=== PATIENT | male | born 1980 | race Caucasian/White ===

== ENCOUNTER 2017-04-25 08:15 | Emergency (ER) | payer MEDICAID, SELFPAY, OTHER ==
[2017-04-25] MEDS: KETOROLAC 30 MG/ML VIAL (J1885) IV ×2 (09:37)
[2017-04-25] MEDS: diphenhydrAMINE INJ 50MG/ML VIAL (J1200) IV ×2 (09:37)
[2017-04-25] MEDS: NS 1,000 ML IV ×2 (09:37)
[2017-04-25 09:42] LABS: BASO # 0.1 10^3/uL (0.0-0.2); BASO % 0.3 % (0.0-1.0); EOS # 0.1 10^3/uL (0.0-0.50); EOS % 0.5 % (0.0-3.0); HEMATOCRIT 43.4 % (42.0-52.0); HEMOGLOBIN 14.6 g/dl (14.0-18.0); IMMATURE GRANULOCYTE % 0.6 % (0-3.0); LYMPH # 1.3 10^3/uL (1.5-4.5); LYMPH % 5.3 % (24.0-44.0); MEAN CORPUSCULAR HEMOGLOBIN 29.9 pg (27.0-33.0); MEAN CORPUSCULAR HGB CONC 33.6 g/dl (32.0-36.5); MEAN CORPUSCULAR VOLUME 88.9 fl (80.0-96.0); MONO # 1.7 10^3/uL (0.0-0.8); MONO % 7.1 % (0.0-5.0); NEUTROPHILS # 20.7 10^3/uL (1.8-7.7); NEUTROPHILS % 86.2 % (36.0-66.0); PLATELET COUNT, AUTOMATED 309 10^3/uL (150-450); RED BLOOD COUNT 4.88 10^6/uL (4.30-6.10)
[2017-04-25] MEDS: CEFTRIAXONE SOD 1 GM in APPROPRIATE DILUENT 1 EA IV (09:42)
[2017-04-25 10:49] LABS: ANION GAP 7 MEQ/L (8-16); BLOOD UREA NITROGEN 7 MG/DL (7-18); CALCIUM LEVEL 9.4 MG/DL (8.5-10.1); CARBON DIOXIDE LEVEL 31 MEQ/L (21-32); CHLORIDE LEVEL 99 MEQ/L (98-107); CREATININE FOR GFR 0.73 MG/DL (0.70-1.30); GLOMERULAR FILTRATION RATE > 60.0 (>60); GLUCOSE, FASTING 100 MG/DL (70-100); POTASSIUM SERUM 3.9 MEQ/L (3.5-5.1); SODIUM LEVEL 137 MEQ/L (136-145)
== END 2017-04-25 11:19 | disposition home or self-care (01) ==
LOC: M ED 08:15
DX: L03.211 Cellulitis of face (principal); L02.414 Cutaneous abscess of left upper limb; R21 Rash and other nonspecific skin eruption; M54.9 Dorsalgia, unspecified; Z79.899 Other long term (current) drug therapy
CPT/HCPCS: J1200

== ENCOUNTER 2017-04-27 17:57 | Inpatient (IN) | payer MEDICAID, SELFPAY ==
[2017-04-27] MEDS: NS 1,000 ML IV (20:20)
[2017-04-27 20:31] LABS: BASO # 0.1 10^3/uL (0.0-0.2); BASO % 0.4 % (0.0-1.0); EOS # 0.3 10^3/uL (0.0-0.50); EOS % 1.5 % (0.0-3.0); HEMATOCRIT 42.1 % (42.0-52.0); HEMOGLOBIN 14.2 g/dl (14.0-18.0); IMMATURE GRANULOCYTE % 0.6 % (0-3.0); LYMPH # 1.8 10^3/uL (1.5-4.5); LYMPH % 10.9 % (24.0-44.0); MEAN CORPUSCULAR HEMOGLOBIN 29.8 pg (27.0-33.0); MEAN CORPUSCULAR HGB CONC 33.7 g/dl (32.0-36.5); MEAN CORPUSCULAR VOLUME 88.4 fl (80.0-96.0); MONO # 1.3 10^3/uL (0.0-0.8); MONO % 8.2 % (0.0-5.0); NEUTROPHILS # 12.8 10^3/uL (1.8-7.7); NEUTROPHILS % 78.4 % (36.0-66.0); PLATELET COUNT, AUTOMATED 374 10^3/uL (150-450); RED BLOOD COUNT 4.76 10^6/uL (4.30-6.10); RED CELL DISTRIBUTION WIDTH 12.8 % (11.5-14.5); WHITE BLOOD COUNT 16.3 10^3/uL (4.0-10.0)
[2017-04-27 20:49] LABS: ALBUMIN 3.4 GM/DL (3.2-5.2); ALBUMIN/GLOBULIN RATIO 0.76 (1.00-1.93); ALKALINE PHOSPHATASE 121 U/L (45-117); ALT/SGPT 46 U/L (12-78); ANION GAP 5 MEQ/L (8-16); AST/SGOT 34 U/L (7-37); BILIRUBIN,DIRECT 0.1 MG/DL (0.0-0.2); BILIRUBIN,TOTAL 0.3 MG/DL (0.2-1.0); BLOOD UREA NITROGEN 8 MG/DL (7-18); CALCIUM LEVEL 9.3 MG/DL (8.5-10.1); CARBON DIOXIDE LEVEL 30 MEQ/L (21-32); CHLORIDE LEVEL 104 MEQ/L (98-107); GLOMERULAR FILTRATION RATE > 60.0 (>60); GLUCOSE, FASTING 79 MG/DL (70-100); POTASSIUM SERUM 4.1 MEQ/L (3.5-5.1); SODIUM LEVEL 139 MEQ/L (136-145); TOTAL PROTEIN 7.9 GM/DL (6.4-8.2)
[2017-04-27 20:49] LABS: LACTIC ACID SEPSIS PROTOCOL 0.9 MMOL/L (0.4-2.0)
[2017-04-27] MEDS ORDERED: ISOVUE-370 76% 100ML VIAL (Q9967) As Ordered (20:50)
[2017-04-27 20:55] LABS: ERYTHROCYTE SEDIMENTATION RATE 69 mm/hr (0-15)
[2017-04-27] MEDS ORDERED: ONDANSETRON 4MG/2ML VIAL (J2405) IV (22:15)
[2017-04-27] MEDS: VANCOMYCIN HCL 1,000 MG, VIAL MATE ADAPTER 1 EACH in D5W 250 ML IV (22:30)
[2017-04-27] MEDS ORDERED: VANCOMYCIN HCL 1,000 MG in IV FLUID PLACE HOLDER 1 EA IV (22:30)
[2017-04-27] MEDS ORDERED: PERCOCET 5MG/325MG TAB PO (22:30)
[2017-04-27] MEDS: MORPHINE 4 MG/ML 1ML VIAL (J2270) IV (22:38)
[2017-04-27 22:53] LABS: IMMUNOGLOBULIN G 948 MG/DL (681-1648); IMMUNOGLOBULIN M 111 MG/DL (40-230)
[2017-04-28] MEDS: NS 1,000 ML IV ×2 (00:38→15:13)
[2017-04-28] MEDS: VANCOMYCIN HCL 1,000 MG, VIAL MATE ADAPTER 1 EACH in D5W 250 ML IV ×4 (00:38→18:13)
[2017-04-28] MEDS: DOCUSATE SODIUM 100 MG CAP PO ×3 (00:39→21:11)
[2017-04-28] MEDS: PERCOCET 5MG/325MG TAB PO ×5 (01:07→21:11)
[2017-04-28] MEDS: PIPERACILLIN/TAZOBACTAM SOD 3.375 GM in APPROPRIATE DILUENT 1 EA IV ×3 (03:42→17:12)
[2017-04-28] MEDS ORDERED: HEPARIN SOD (PORCINE) 5000 UNITS/ML VIAL SC (06:00)
[2017-04-28 06:12] LABS: HEMATOCRIT 38.4 % (42.0-52.0); HEMOGLOBIN 12.7 g/dl (14.0-18.0); MEAN CORPUSCULAR HEMOGLOBIN 29.7 pg (27.0-33.0); MEAN CORPUSCULAR HGB CONC 33.1 g/dl (32.0-36.5); MEAN CORPUSCULAR VOLUME 89.7 fl (80.0-96.0); PLATELET COUNT, AUTOMATED 317 10^3/uL (150-450); RED BLOOD COUNT 4.28 10^6/uL (4.30-6.10); RED CELL DISTRIBUTION WIDTH 12.9 % (11.5-14.5); WHITE BLOOD COUNT 9.9 10^3/uL (4.0-10.0)
[2017-04-28 06:49] LABS: ANION GAP 7 MEQ/L (8-16); BLOOD UREA NITROGEN 6 MG/DL (7-18); C REACTIVE PROTEIN QUANTITATIV 9.94 MG/DL (0.00-0.30); CALCIUM LEVEL 9.2 MG/DL (8.5-10.1); CARBON DIOXIDE LEVEL 30 MEQ/L (21-32); CHLORIDE LEVEL 102 MEQ/L (98-107); CREATININE FOR GFR 0.68 MG/DL (0.70-1.30); GLOMERULAR FILTRATION RATE > 60.0 (>60); GLUCOSE, FASTING 91 MG/DL (70-100); POTASSIUM SERUM 3.6 MEQ/L (3.5-5.1); SODIUM LEVEL 139 MEQ/L (136-145)
[2017-04-28] MEDS: ENOXAPARIN 40 MG/0.4 ML SYRINGE (J1650) SC (09:27)
[2017-04-28] MEDS: MORPHINE 4 MG/ML 1ML VIAL (J2270) IV ×3 (09:28→17:12)
[2017-04-28] MEDS: diphenhydrAMINE 25 MG CAP PO (15:11)
[2017-04-28] MEDS ORDERED: PERCOCET 5MG/325MG TAB PO (15:15)
[2017-04-29] MEDS: MORPHINE 4 MG/ML 1ML VIAL (J2270) IV ×5 (00:06→22:11)
[2017-04-29] MEDS: PIPERACILLIN/TAZOBACTAM SOD 3.375 GM in APPROPRIATE DILUENT 1 EA IV ×3 (01:23→16:08)
[2017-04-29] MEDS: PERCOCET 5MG/325MG TAB PO ×6 (01:24→23:47)
[2017-04-29 03:00] LABS: VANCOMYCIN LEVEL TROUGH 12.6 UG/ML (10.0-20.0)
[2017-04-29] MEDS: diphenhydrAMINE 25 MG CAP PO ×2 (03:42→21:34)
[2017-04-29] MEDS: VANCOMYCIN HCL 1,000 MG, VIAL MATE ADAPTER 1 EACH in D5W 250 ML IV ×3 (03:43→17:31)
[2017-04-29 06:30] LABS: HEMATOCRIT 42.3 % (42.0-52.0); HEMOGLOBIN 14.1 g/dl (14.0-18.0); MEAN CORPUSCULAR HEMOGLOBIN 29.3 pg (27.0-33.0); MEAN CORPUSCULAR HGB CONC 33.3 g/dl (32.0-36.5); MEAN CORPUSCULAR VOLUME 87.9 fl (80.0-96.0); PLATELET COUNT, AUTOMATED 389 10^3/uL (150-450); RED BLOOD COUNT 4.81 10^6/uL (4.30-6.10); RED CELL DISTRIBUTION WIDTH 12.7 % (11.5-14.5); WHITE BLOOD COUNT 7.5 10^3/uL (4.0-10.0)
[2017-04-29 06:47] LABS: ANION GAP 4 MEQ/L (8-16); BLOOD UREA NITROGEN 4 MG/DL (7-18); C REACTIVE PROTEIN QUANTITATIV 4.33 MG/DL (0.00-0.30); CALCIUM LEVEL 9.4 MG/DL (8.5-10.1); CARBON DIOXIDE LEVEL 31 MEQ/L (21-32); CHLORIDE LEVEL 102 MEQ/L (98-107); CREATININE FOR GFR 0.75 MG/DL (0.70-1.30); GLOMERULAR FILTRATION RATE > 60.0 (>60); GLUCOSE, FASTING 83 MG/DL (70-100); POTASSIUM SERUM 3.7 MEQ/L (3.5-5.1); SODIUM LEVEL 137 MEQ/L (136-145)
[2017-04-29] MEDS: NS 1,000 ML IV ×3 (07:35→23:47)
[2017-04-29] MEDS: DOCUSATE SODIUM 100 MG CAP PO ×2 (09:33→21:35)
[2017-04-29] MEDS: ENOXAPARIN 40 MG/0.4 ML SYRINGE (J1650) SC (09:34)
[2017-04-29] MEDS: GABAPENTIN 100 MG CAP PO ×2 (14:57→21:34)
[2017-04-29] MEDS: **hydrALAZINE HCL** 25 MG TAB PO (17:00)
[2017-04-30] MEDS: MORPHINE 4 MG/ML 1ML VIAL (J2270) IV ×4 (00:38→13:17)
[2017-04-30] MEDS: PIPERACILLIN/TAZOBACTAM SOD 3.375 GM in APPROPRIATE DILUENT 1 EA IV ×3 (00:38→16:43)
[2017-04-30] MEDS: VANCOMYCIN HCL 1,000 MG, VIAL MATE ADAPTER 1 EACH in D5W 250 ML IV ×3 (02:06→17:34)
[2017-04-30] MEDS: PERCOCET 5MG/325MG TAB PO ×4 (03:55→21:00)
[2017-04-30 07:06] LABS: HEMATOCRIT 46.1 % (42.0-52.0); HEMOGLOBIN 15.5 g/dl (14.0-18.0); MEAN CORPUSCULAR HEMOGLOBIN 29.5 pg (27.0-33.0); MEAN CORPUSCULAR HGB CONC 33.6 g/dl (32.0-36.5); MEAN CORPUSCULAR VOLUME 87.6 fl (80.0-96.0); PLATELET COUNT, AUTOMATED 379 10^3/uL (150-450); RED BLOOD COUNT 5.26 10^6/uL (4.30-6.10); RED CELL DISTRIBUTION WIDTH 12.4 % (11.5-14.5); WHITE BLOOD COUNT 7.9 10^3/uL (4.0-10.0)
[2017-04-30 07:25] LABS: ANION GAP 5 MEQ/L (8-16); BLOOD UREA NITROGEN 7 MG/DL (7-18); C REACTIVE PROTEIN QUANTITATIV 1.74 MG/DL (0.00-0.30); CALCIUM LEVEL 9.3 MG/DL (8.5-10.1); CARBON DIOXIDE LEVEL 31 MEQ/L (21-32); CHLORIDE LEVEL 103 MEQ/L (98-107); CREATININE FOR GFR 0.72 MG/DL (0.70-1.30); GLOMERULAR FILTRATION RATE > 60.0 (>60); GLUCOSE, FASTING 87 MG/DL (70-100); POTASSIUM SERUM 4.4 MEQ/L (3.5-5.1); SODIUM LEVEL 139 MEQ/L (136-145)
[2017-04-30] MEDS: GABAPENTIN 100 MG CAP PO (08:54)
[2017-04-30] MEDS: DOCUSATE SODIUM 100 MG CAP PO ×2 (08:54→20:59)
[2017-04-30] MEDS: ENOXAPARIN 40 MG/0.4 ML SYRINGE (J1650) SC (08:55)
[2017-04-30 12:09] LABS: HEPATITIS B SURFACE ANTIGEN NEGATIVE (NEGATIVE)
[2017-04-30 12:31] LABS: HEPATITIS B CORE ANTIBODY IGM NEGATIVE (NEGATIVE)
[2017-04-30 12:31] LABS: HEPATITIS C VIRUS ABY INDEX 0.1 INDEX (<0.8)
[2017-04-30 12:34] LABS: HEPATITIS A ANTIBODY IGM NEGATIVE (NEGATIVE)
[2017-04-30 12:35] LABS: HIV 1&2 SCREEN CENTAUR NEGATIVE (NEGATIVE)
[2017-04-30] MEDS: traMADol 50 MG TAB PO ×2 (14:37→22:07)
[2017-04-30] MEDS: NS 1,000 ML IV ×2 (16:26→20:58)
[2017-04-30] MEDS: KETOROLAC TROMETHAMINE 10 MG TAB PO (20:59)
[2017-04-30] MEDS: GABAPENTIN 300 MG CAP PO (20:59)
[2017-04-30] MEDS: diphenhydrAMINE 25 MG CAP PO (22:06)
[2017-04-30] MEDS: ACETAMINOPHEN TAB 650MG DOSE (2X325MG) PO (22:06)
[2017-05-01] MEDS: PIPERACILLIN/TAZOBACTAM SOD 3.375 GM in APPROPRIATE DILUENT 1 EA IV ×2 (00:41→08:45)
[2017-05-01] MEDS: MORPHINE 4 MG/ML 1ML VIAL (J2270) IV ×6 (00:42→22:26)
[2017-05-01] MEDS: VANCOMYCIN HCL 1,000 MG, VIAL MATE ADAPTER 1 EACH in D5W 250 ML IV ×2 (01:48→10:15)
[2017-05-01] MEDS: KETOROLAC TROMETHAMINE 10 MG TAB PO ×2 (03:01→19:39)
[2017-05-01] MEDS: GABAPENTIN 300 MG CAP PO ×3 (03:01→22:26)
[2017-05-01] MEDS: ACETAMINOPHEN TAB 650MG DOSE (2X325MG) PO ×2 (03:01→19:39)
[2017-05-01] MEDS: SENNA 8.6 MG TAB (SENOKOT) PO ×2 (08:46→19:40)
[2017-05-01] MEDS: PERCOCET 5MG/325MG TAB PO ×3 (08:46→18:22)
[2017-05-01] MEDS: ENOXAPARIN 40 MG/0.4 ML SYRINGE (J1650) SC (08:47)
[2017-05-01 09:26] LABS: HEMATOCRIT 46.3 % (42.0-52.0); HEMOGLOBIN 15.5 g/dl (14.0-18.0); MEAN CORPUSCULAR HEMOGLOBIN 28.7 pg (27.0-33.0); MEAN CORPUSCULAR HGB CONC 33.5 g/dl (32.0-36.5); MEAN CORPUSCULAR VOLUME 85.6 fl (80.0-96.0); PLATELET COUNT, AUTOMATED 392 10^3/uL (150-450); RED BLOOD COUNT 5.41 10^6/uL (4.30-6.10); RED CELL DISTRIBUTION WIDTH 12.4 % (11.5-14.5); WHITE BLOOD COUNT 8.8 10^3/uL (4.0-10.0)
[2017-05-01 09:52] LABS: ANION GAP 7 MEQ/L (8-16); BLOOD UREA NITROGEN 8 MG/DL (7-18); C REACTIVE PROTEIN QUANTITATIV 0.83 MG/DL (0.00-0.30); CALCIUM LEVEL 9.4 MG/DL (8.5-10.1); CARBON DIOXIDE LEVEL 27 MEQ/L (21-32); CHLORIDE LEVEL 105 MEQ/L (98-107); CREATININE FOR GFR 0.85 MG/DL (0.70-1.30); GLOMERULAR FILTRATION RATE > 60.0 (>60); GLUCOSE, FASTING 130 MG/DL (70-100); SODIUM LEVEL 139 MEQ/L (136-145)
[2017-05-01] MEDS: CEFDINIR 300 MG CAP (OMNICEF) PO (13:07)
[2017-05-01] MEDS: NS 1,000 ML IV (19:42)
[2017-05-02 00:11] LABS: COMPLEMENT TOTAL (CH50) > 63 U/mL (42-60)
[2017-05-02] MEDS: PERCOCET 5MG/325MG TAB PO ×2 (01:43→06:56)
[2017-05-02] MEDS: CEFDINIR 300 MG CAP (OMNICEF) PO ×2 (01:43→13:10)
[2017-05-02] MEDS: KETOROLAC TROMETHAMINE 10 MG TAB PO ×2 (03:00→09:22)
[2017-05-02] MEDS: ACETAMINOPHEN TAB 650MG DOSE (2X325MG) PO (03:00)
[2017-05-02] MEDS: traMADol 50 MG TAB PO ×2 (03:01→09:22)
[2017-05-02] MEDS: GABAPENTIN 300 MG CAP PO ×2 (06:55→21:48)
[2017-05-02 08:10] LABS: ANION GAP 9 MEQ/L (8-16); BLOOD UREA NITROGEN 6 MG/DL (7-18); CALCIUM LEVEL 9.5 MG/DL (8.5-10.1); CARBON DIOXIDE LEVEL 27 MEQ/L (21-32); CHLORIDE LEVEL 103 MEQ/L (98-107); CREATININE FOR GFR 0.77 MG/DL (0.70-1.30); GLOMERULAR FILTRATION RATE > 60.0 (>60); GLUCOSE, FASTING 83 MG/DL (70-100); POTASSIUM SERUM 4.5 MEQ/L (3.5-5.1); SODIUM LEVEL 139 MEQ/L (136-145)
[2017-05-02 08:31] LABS: HEMATOCRIT 47.2 % (42.0-52.0); HEMOGLOBIN 15.9 g/dl (14.0-18.0); MEAN CORPUSCULAR HEMOGLOBIN 29.7 pg (27.0-33.0); MEAN CORPUSCULAR HGB CONC 33.7 g/dl (32.0-36.5); MEAN CORPUSCULAR VOLUME 88.2 fl (80.0-96.0); PLATELET COUNT, AUTOMATED 340 10^3/uL (150-450); RED BLOOD COUNT 5.35 10^6/uL (4.30-6.10); RED CELL DISTRIBUTION WIDTH 12.5 % (11.5-14.5); WHITE BLOOD COUNT 10.5 10^3/uL (4.0-10.0)
[2017-05-02] MEDS: SENNA 8.6 MG TAB (SENOKOT) PO ×2 (09:17→21:36)
[2017-05-02] MEDS: ENOXAPARIN 40 MG/0.4 ML SYRINGE (J1650) SC (09:18)
[2017-05-02] MEDS: MORPHINE 4 MG/ML 1ML VIAL (J2270) IV ×3 (10:25→19:03)
[2017-05-02] MEDS ORDERED: PILL CUTTER/CRUSHER XX (10:30)
[2017-05-02] MEDS: BACLOFEN 10 MG TAB PO ×3 (10:35→21:36)
[2017-05-02] MEDS: MORPHINE 30 MG TAB **MSIR PO ×3 (12:02→21:36)
[2017-05-02] MEDS ORDERED: [UNRECOGNIZED DRUG - REMARK] XX (16:45)
[2017-05-02] MEDS: DOCUSATE SODIUM 100 MG CAP PO (21:36)
[2017-05-03] MEDS: CEFDINIR 300 MG CAP (OMNICEF) PO ×2 (02:56→13:18)
[2017-05-03] MEDS: traMADol 50 MG TAB PO ×2 (03:09→22:50)
[2017-05-03] MEDS: GABAPENTIN 300 MG CAP PO ×3 (03:36→20:13)
[2017-05-03] MEDS: MORPHINE 30 MG TAB **MSIR PO ×3 (03:37→13:18)
[2017-05-03] MEDS: SENNA 8.6 MG TAB (SENOKOT) PO ×2 (08:51→20:13)
[2017-05-03] MEDS: ENOXAPARIN 40 MG/0.4 ML SYRINGE (J1650) SC (08:52)
[2017-05-03] MEDS: DOCUSATE SODIUM 100 MG CAP PO ×2 (08:52→20:13)
[2017-05-03] MEDS: BACLOFEN 10 MG TAB PO ×3 (08:52→20:13)
[2017-05-03 10:20] LABS: HEMATOCRIT 46.6 % (42.0-52.0); HEMOGLOBIN 15.9 g/dl (14.0-18.0); MEAN CORPUSCULAR HEMOGLOBIN 29.6 pg (27.0-33.0); MEAN CORPUSCULAR HGB CONC 34.1 g/dl (32.0-36.5); MEAN CORPUSCULAR VOLUME 86.6 fl (80.0-96.0); PLATELET COUNT, AUTOMATED 372 10^3/uL (150-450); RED BLOOD COUNT 5.38 10^6/uL (4.30-6.10); RED CELL DISTRIBUTION WIDTH 12.7 % (11.5-14.5); WHITE BLOOD COUNT 10.4 10^3/uL (4.0-10.0)
[2017-05-03 10:43] LABS: ANION GAP 8 MEQ/L (8-16); BLOOD UREA NITROGEN 9 MG/DL (7-18); C REACTIVE PROTEIN QUANTITATIV 0.37 MG/DL (0.00-0.30); CALCIUM LEVEL 9.3 MG/DL (8.5-10.1); CARBON DIOXIDE LEVEL 28 MEQ/L (21-32); CHLORIDE LEVEL 104 MEQ/L (98-107); CREATININE FOR GFR 0.77 MG/DL (0.70-1.30); GLOMERULAR FILTRATION RATE > 60.0 (>60); GLUCOSE, FASTING 119 MG/DL (70-100); POTASSIUM SERUM 3.8 MEQ/L (3.5-5.1); SODIUM LEVEL 140 MEQ/L (136-145)
[2017-05-03] MEDS: KETOROLAC TROMETHAMINE 10 MG TAB PO (13:18)
[2017-05-03] MEDS: PERCOCET 5MG/325MG TAB PO (20:14)
[2017-05-04] MEDS: KETOROLAC TROMETHAMINE 10 MG TAB PO (02:15)
[2017-05-04] MEDS: PERCOCET 5MG/325MG TAB PO ×4 (02:16→22:13)
[2017-05-04] MEDS: CEFDINIR 300 MG CAP (OMNICEF) PO ×2 (02:16→14:45)
[2017-05-04] MEDS: MORPHINE 30 MG TAB **MSIR PO ×2 (03:32→10:21)
[2017-05-04] MEDS: GABAPENTIN 300 MG CAP PO ×3 (03:34→21:04)
[2017-05-04] MEDS: traMADol 50 MG TAB PO ×2 (07:04→18:27)
[2017-05-04 07:23] LABS: HEMATOCRIT 46.2 % (42.0-52.0); MEAN CORPUSCULAR HEMOGLOBIN 28.8 pg (27.0-33.0); MEAN CORPUSCULAR HGB CONC 32.5 g/dl (32.0-36.5); MEAN CORPUSCULAR VOLUME 88.7 fl (80.0-96.0); PLATELET COUNT, AUTOMATED 350 10^3/uL (150-450); RED BLOOD COUNT 5.21 10^6/uL (4.30-6.10); RED CELL DISTRIBUTION WIDTH 12.8 % (11.5-14.5); WHITE BLOOD COUNT 10.4 10^3/uL (4.0-10.0)
[2017-05-04 07:46] LABS: ANION GAP 5 MEQ/L (8-16); BLOOD UREA NITROGEN 19 MG/DL (7-18); C REACTIVE PROTEIN QUANTITATIV < 0.30 MG/DL (0.00-0.30); CARBON DIOXIDE LEVEL 27 MEQ/L (21-32); CHLORIDE LEVEL 108 MEQ/L (98-107); GLOMERULAR FILTRATION RATE > 60.0 (>60); GLUCOSE, FASTING 84 MG/DL (70-100); POTASSIUM SERUM 4.6 MEQ/L (3.5-5.1); SODIUM LEVEL 140 MEQ/L (136-145)
[2017-05-04] MEDS: ENOXAPARIN 40 MG/0.4 ML SYRINGE (J1650) SC (09:00)
[2017-05-04] MEDS: SENNA 8.6 MG TAB (SENOKOT) PO ×2 (09:02→21:04)
[2017-05-04] MEDS: DOCUSATE SODIUM 100 MG CAP PO ×2 (09:02→21:04)
[2017-05-04] MEDS: BACLOFEN 10 MG TAB PO ×3 (09:02→21:04)
[2017-05-04] MEDS: NS 1,000 ML IV (17:35)
[2017-05-04] MEDS: ACETAMINOPHEN TAB 650MG DOSE (2X325MG) PO (21:04)
[2017-05-04] MEDS: INDOMETHACIN 25 MG CAP PO (21:05)
[2017-05-05] MEDS: traMADol 50 MG TAB PO ×3 (03:10→21:02)
[2017-05-05] MEDS: CEFDINIR 300 MG CAP (OMNICEF) PO ×2 (03:10→15:21)
[2017-05-05] MEDS: PERCOCET 5MG/325MG TAB PO ×4 (04:15→23:21)
[2017-05-05] MEDS: ENOXAPARIN 40 MG/0.4 ML SYRINGE (J1650) SC (08:58)
[2017-05-05] MEDS: INDOMETHACIN 25 MG CAP PO ×2 (08:58→21:01)
[2017-05-05] MEDS: BACLOFEN 10 MG TAB PO ×3 (08:58→21:01)
[2017-05-05] MEDS: SENNA 8.6 MG TAB (SENOKOT) PO ×2 (08:58→21:01)
[2017-05-05] MEDS: GABAPENTIN 300 MG CAP PO ×2 (08:58→15:21)
[2017-05-05] MEDS: DOCUSATE SODIUM 100 MG CAP PO ×2 (08:58→21:01)
[2017-05-05] MEDS: ACETAMINOPHEN TAB 650MG DOSE (2X325MG) PO (21:02)
[2017-05-06] MEDS: CEFDINIR 300 MG CAP (OMNICEF) PO ×2 (02:57→13:28)
[2017-05-06] MEDS: PERCOCET 5MG/325MG TAB PO ×3 (02:57→18:15)
[2017-05-06] MEDS: GABAPENTIN 300 MG CAP PO ×3 (05:11→22:48)
[2017-05-06] MEDS: ACETAMINOPHEN TAB 650MG DOSE (2X325MG) PO ×2 (05:12→20:45)
[2017-05-06] MEDS: traMADol 50 MG TAB PO ×3 (05:12→22:49)
[2017-05-06 06:24] LABS: BASO # 0.1 10^3/uL (0.0-0.2); BASO % 0.7 % (0.0-1.0); EOS # 0.4 10^3/uL (0.0-0.50); EOS % 4.5 % (0.0-3.0); HEMATOCRIT 42.2 % (42.0-52.0); HEMOGLOBIN 14.3 g/dl (14.0-18.0); IMMATURE GRANULOCYTE % 0.7 % (0-3.0); LYMPH # 2.5 10^3/uL (1.5-4.5); LYMPH % 26.6 % (24.0-44.0); MEAN CORPUSCULAR HEMOGLOBIN 29.4 pg (27.0-33.0); MEAN CORPUSCULAR HGB CONC 33.9 g/dl (32.0-36.5); MEAN CORPUSCULAR VOLUME 86.8 fl (80.0-96.0); MONO # 0.8 10^3/uL (0.0-0.8); MONO % 8.5 % (0.0-5.0); NEUTROPHILS # 5.6 10^3/uL (1.8-7.7); PLATELET COUNT, AUTOMATED 311 10^3/uL (150-450); RED BLOOD COUNT 4.86 10^6/uL (4.30-6.10); RED CELL DISTRIBUTION WIDTH 12.5 % (11.5-14.5); WHITE BLOOD COUNT 9.5 10^3/uL (4.0-10.0)
[2017-05-06 06:49] LABS: ANION GAP 7 MEQ/L (8-16); BLOOD UREA NITROGEN 18 MG/DL (7-18); CALCIUM LEVEL 8.9 MG/DL (8.5-10.1); CARBON DIOXIDE LEVEL 29 MEQ/L (21-32); CHLORIDE LEVEL 105 MEQ/L (98-107); CREATININE FOR GFR 0.79 MG/DL (0.70-1.30); GLOMERULAR FILTRATION RATE > 60.0 (>60); GLUCOSE, FASTING 90 MG/DL (70-100); MAGNESIUM LEVEL 2.2 MG/DL (1.8-2.4); POTASSIUM SERUM 4.2 MEQ/L (3.5-5.1); SODIUM LEVEL 141 MEQ/L (136-145)
[2017-05-06] MEDS: SENNA 8.6 MG TAB (SENOKOT) PO ×2 (08:05→20:44)
[2017-05-06] MEDS: INDOMETHACIN 25 MG CAP PO ×2 (08:05→20:44)
[2017-05-06] MEDS: ENOXAPARIN 40 MG/0.4 ML SYRINGE (J1650) SC (08:05)
[2017-05-06] MEDS: BACLOFEN 10 MG TAB PO ×3 (08:05→20:44)
[2017-05-06] MEDS: DOCUSATE SODIUM 100 MG CAP PO ×2 (08:05→20:44)
[2017-05-07] MEDS: PERCOCET 5MG/325MG TAB PO ×4 (00:10→20:08)
[2017-05-07] MEDS: CEFDINIR 300 MG CAP (OMNICEF) PO ×2 (02:15→13:15)
[2017-05-07] MEDS: ACETAMINOPHEN TAB 650MG DOSE (2X325MG) PO (04:58)
[2017-05-07] MEDS: GABAPENTIN 300 MG CAP PO ×3 (07:10→20:06)
[2017-05-07 07:23] LABS: BASO # 0.1 10^3/uL (0.0-0.2); BASO % 1.2 % (0.0-1.0); EOS # 0.4 10^3/uL (0.0-0.50); EOS % 4.6 % (0.0-3.0); HEMATOCRIT 44.7 % (42.0-52.0); HEMOGLOBIN 15.2 g/dl (14.0-18.0); IMMATURE GRANULOCYTE % 0.7 % (0-3.0); LYMPH # 2.1 10^3/uL (1.5-4.5); LYMPH % 24.8 % (24.0-44.0); MEAN CORPUSCULAR HEMOGLOBIN 29.2 pg (27.0-33.0); MEAN CORPUSCULAR VOLUME 85.8 fl (80.0-96.0); MONO # 0.6 10^3/uL (0.0-0.8); MONO % 6.9 % (0.0-5.0); NEUTROPHILS # 5.2 10^3/uL (1.8-7.7); NEUTROPHILS % 61.8 % (36.0-66.0); PLATELET COUNT, AUTOMATED 349 10^3/uL (150-450); RED BLOOD COUNT 5.21 10^6/uL (4.30-6.10); RED CELL DISTRIBUTION WIDTH 12.6 % (11.5-14.5); WHITE BLOOD COUNT 8.4 10^3/uL (4.0-10.0)
[2017-05-07 07:43] LABS: ANION GAP 6 MEQ/L (8-16); BLOOD UREA NITROGEN 18 MG/DL (7-18); CALCIUM LEVEL 9.1 MG/DL (8.5-10.1); CARBON DIOXIDE LEVEL 29 MEQ/L (21-32); CHLORIDE LEVEL 104 MEQ/L (98-107); GLOMERULAR FILTRATION RATE > 60.0 (>60); GLUCOSE, FASTING 90 MG/DL (70-100); MAGNESIUM LEVEL 2.1 MG/DL (1.8-2.4); POTASSIUM SERUM 4.5 MEQ/L (3.5-5.1); SODIUM LEVEL 139 MEQ/L (136-145)
[2017-05-07] MEDS: ENOXAPARIN 40 MG/0.4 ML SYRINGE (J1650) SC (08:13)
[2017-05-07] MEDS: DOCUSATE SODIUM 100 MG CAP PO ×2 (08:13→20:06)
[2017-05-07] MEDS: BACLOFEN 10 MG TAB PO ×3 (08:13→20:06)
[2017-05-07] MEDS: SENNA 8.6 MG TAB (SENOKOT) PO ×2 (08:13→21:00)
[2017-05-07] MEDS: INDOMETHACIN 25 MG CAP PO ×2 (08:14→20:07)
[2017-05-07] MEDS: traMADol 50 MG TAB PO ×2 (10:17→18:36)
[2017-05-08] MEDS: CEFDINIR 300 MG CAP (OMNICEF) PO ×2 (02:17→13:19)
[2017-05-08] MEDS: PERCOCET 5MG/325MG TAB PO ×3 (05:21→20:30)
[2017-05-08] MEDS: ACETAMINOPHEN TAB 650MG DOSE (2X325MG) PO ×3 (07:35→22:55)
[2017-05-08] MEDS: SENNA 8.6 MG TAB (SENOKOT) PO ×2 (08:58→20:30)
[2017-05-08] MEDS: INDOMETHACIN 25 MG CAP PO ×2 (08:58→20:30)
[2017-05-08] MEDS: ENOXAPARIN 40 MG/0.4 ML SYRINGE (J1650) SC (08:59)
[2017-05-08] MEDS: BACLOFEN 10 MG TAB PO ×4 (08:59→20:30)
[2017-05-08] MEDS: DOCUSATE SODIUM 100 MG CAP PO ×2 (08:59→20:30)
[2017-05-08] MEDS: GABAPENTIN 300 MG CAP PO ×3 (08:59→20:30)
[2017-05-08] MEDS ORDERED: LORazepam 1 MG TAB PO (12:45)
[2017-05-08] MEDS: LORazepam 1 MG TAB PO (15:28)
[2017-05-08] MEDS ORDERED: PROHANCE 279.3MG/ML 15ML VIAL (A9576) As Ordered (15:53)
[2017-05-09] MEDS: CEFDINIR 300 MG CAP (OMNICEF) PO ×2 (02:00→13:17)
[2017-05-09] MEDS: PERCOCET 5MG/325MG TAB PO ×2 (04:31→11:27)
[2017-05-09 07:07] LABS: BASO # 0.1 10^3/uL (0.0-0.2); BASO % 1.2 % (0.0-1.0); EOS # 0.4 10^3/uL (0.0-0.50); EOS % 4.2 % (0.0-3.0); HEMOGLOBIN 14.8 g/dl (14.0-18.0); IMMATURE GRANULOCYTE % 0.9 % (0-3.0); LYMPH # 2.3 10^3/uL (1.5-4.5); LYMPH % 25.1 % (24.0-44.0); MEAN CORPUSCULAR HEMOGLOBIN 29.7 pg (27.0-33.0); MEAN CORPUSCULAR HGB CONC 33.6 g/dl (32.0-36.5); MEAN CORPUSCULAR VOLUME 88.4 fl (80.0-96.0); MONO # 0.8 10^3/uL (0.0-0.8); MONO % 8.6 % (0.0-5.0); NEUTROPHILS # 5.4 10^3/uL (1.8-7.7); PLATELET COUNT, AUTOMATED 349 10^3/uL (150-450); RED BLOOD COUNT 4.98 10^6/uL (4.30-6.10); RED CELL DISTRIBUTION WIDTH 12.8 % (11.5-14.5)
[2017-05-09 07:36] LABS: ANION GAP 7 MEQ/L (8-16); BLOOD UREA NITROGEN 20 MG/DL (7-18); CALCIUM LEVEL 9.2 MG/DL (8.5-10.1); CARBON DIOXIDE LEVEL 26 MEQ/L (21-32); CHLORIDE LEVEL 104 MEQ/L (98-107); CREATININE FOR GFR 0.79 MG/DL (0.70-1.30); GLOMERULAR FILTRATION RATE > 60.0 (>60); GLUCOSE, FASTING 84 MG/DL (70-100); MAGNESIUM LEVEL 2.2 MG/DL (1.8-2.4); POTASSIUM SERUM 4.5 MEQ/L (3.5-5.1); SODIUM LEVEL 137 MEQ/L (136-145)
[2017-05-09] MEDS: SENNA 8.6 MG TAB (SENOKOT) PO ×2 (09:00→21:21)
[2017-05-09] MEDS: DOCUSATE SODIUM 100 MG CAP PO ×2 (09:00→21:22)
[2017-05-09] MEDS: GABAPENTIN 300 MG CAP PO ×3 (09:15→21:22)
[2017-05-09] MEDS: BACLOFEN 10 MG TAB PO ×2 (09:15→13:17)
[2017-05-09] MEDS: ENOXAPARIN 40 MG/0.4 ML SYRINGE (J1650) SC (09:16)
[2017-05-09] MEDS: INDOMETHACIN 25 MG CAP PO ×2 (09:16→21:22)
[2017-05-09] MEDS ORDERED: HYDROmorphone HCL 1 MG/ML SYRINGE (J1170) IV (15:45)
[2017-05-09] MEDS: HYDROmorphone HCL 2 MG/ML 1ML VIAL (J1170) IV ×3 (16:27→23:05)
[2017-05-09] MEDS: oxyCODONE 5MG TAB PO ×2 (16:32→21:22)
[2017-05-09] MEDS: CARISOPRODOL 350 MG TAB PO ×2 (16:33→21:21)
[2017-05-10] MEDS: CEFDINIR 300 MG CAP (OMNICEF) PO ×2 (01:24→14:18)
[2017-05-10] MEDS: HYDROmorphone HCL 2 MG/ML 1ML VIAL (J1170) IV ×6 (02:58→19:28)
[2017-05-10 06:51] LABS: BASO # 0.1 10^3/uL (0.0-0.2); EOS # 0.4 10^3/uL (0.0-0.50); EOS % 4.5 % (0.0-3.0); HEMATOCRIT 41.4 % (42.0-52.0); HEMOGLOBIN 13.9 g/dl (14.0-18.0); IMMATURE GRANULOCYTE % 0.8 % (0-3.0); LYMPH # 2.9 10^3/uL (1.5-4.5); MEAN CORPUSCULAR HEMOGLOBIN 29.4 pg (27.0-33.0); MEAN CORPUSCULAR HGB CONC 33.6 g/dl (32.0-36.5); MEAN CORPUSCULAR VOLUME 87.7 fl (80.0-96.0); MONO # 0.8 10^3/uL (0.0-0.8); MONO % 8.5 % (0.0-5.0); NEUTROPHILS % 54.2 % (36.0-66.0); PLATELET COUNT, AUTOMATED 352 10^3/uL (150-450); RED BLOOD COUNT 4.72 10^6/uL (4.30-6.10); RED CELL DISTRIBUTION WIDTH 12.9 % (11.5-14.5); WHITE BLOOD COUNT 9.2 10^3/uL (4.0-10.0)
[2017-05-10 07:10] LABS: ANION GAP 4 MEQ/L (8-16); BLOOD UREA NITROGEN 18 MG/DL (7-18); CARBON DIOXIDE LEVEL 30 MEQ/L (21-32); CHLORIDE LEVEL 104 MEQ/L (98-107); CREATININE FOR GFR 0.68 MG/DL (0.70-1.30); GLOMERULAR FILTRATION RATE > 60.0 (>60); GLUCOSE, FASTING 90 MG/DL (70-100); MAGNESIUM LEVEL 1.9 MG/DL (1.8-2.4); POTASSIUM SERUM 4.4 MEQ/L (3.5-5.1); SODIUM LEVEL 138 MEQ/L (136-145)
[2017-05-10] MEDS: INDOMETHACIN 25 MG CAP PO ×2 (08:56→20:04)
[2017-05-10] MEDS: oxyCODONE 5MG TAB PO ×3 (08:56→20:05)
[2017-05-10] MEDS: GABAPENTIN 300 MG CAP PO ×3 (08:56→20:04)
[2017-05-10] MEDS: CARISOPRODOL 350 MG TAB PO ×3 (08:57→20:04)
[2017-05-10] MEDS: DOCUSATE SODIUM 100 MG CAP PO ×2 (08:57→20:05)
[2017-05-10] MEDS: ENOXAPARIN 40 MG/0.4 ML SYRINGE (J1650) SC (08:57)
[2017-05-10] MEDS: SENNA 8.6 MG TAB (SENOKOT) PO ×2 (08:57→20:05)
[2017-05-10] MEDS: ACETAMINOPHEN TAB 650MG DOSE (2X325MG) PO (11:59)
== END 2017-05-10 20:41 | disposition short-term general hospital (02) | DRG 383 ==
LOC: M MS5PR 04-28 13:46 → M ED 17:57 → M ED INP 22:15 → M MS5PR 23:49
PROVIDERS: Hospitalist
DX: L03.211 Cellulitis of face (principal); L02.01 Cutaneous abscess of face; M54.5 Low back pain; B95.62 Methicillin resistant Staphylococcus aureus infection as the cause of diseases classified elsewhere; M51.16 Intervertebral disc disorders with radiculopathy, lumbar region; Z98.1 Arthrodesis status; M96.1 Postlaminectomy syndrome, not elsewhere classified